=== PATIENT | male | born 1965 | race Caucasian/White ===

== ENCOUNTER 2021-04-07 14:26 | Outpatient (CLI) | payer OTHER, SELFPAY ==
--- NOTE | 2021-04-07 14:30 | ECG_ITS ---
Measurements Intervals [place] Rate: 99 P: 56 [place]: 139 QRS: 19 QRSD: 93 T: 3 QT: 335 QTc: 431 Interpretive Statements SINUS RHYTHM BORDERLINE ST-T WAVE ABNORMALITY- INFERIOR LEADS BORDERLINE ECG Electronically Signed On 04-07-2021 15:21:15 CDT by Jimmy Armando D.O.
== END 2021-04-07 14:27 | disposition home or self-care (01) ==
PROVIDERS: PCP Family Medicine; Visit Provider Nurse Practitioner Family
DX: E78.2 Mixed hyperlipidemia (principal); I10 Essential (primary) hypertension; Z72.0 Tobacco use; Z82.49 Family history of ischemic heart disease and other diseases of the circulatory system; R94.31 Abnormal electrocardiogram [ECG] [EKG]
CPT/HCPCS: 93005

== ENCOUNTER 2022-06-01 09:03 | Outpatient (CLI) | payer OTHER, SELFPAY ==
--- NOTE | ~2022-06-01 | XR_ITS ---
EXAMINATION: XR ribs BI 3V w CXR 2V INDICATION: Left chest pain TECHNIQUE: PA and lateral views of the chest and 3 views of the bilateral ribs were obtained. COMPARISON: None. FINDINGS: The lungs are free of acute opacities. No pleural effusion or pneumothorax. The cardiomedia stinal silhouette is normal. There is mild thoracic spondylosis. No displaced rib fracture is identif ied. IMPRESSION: 1. No acute cardiopulmonary abnormality or evidence of displaced rib fracture. Reviewed, dictated and finalized at location B.
== END 2022-06-01 09:04 | disposition home or self-care (01) ==
PROVIDERS: PCP Family Medicine; Visit Provider Nurse Practitioner Family
DX: R07.81 Pleurodynia (principal)
CPT/HCPCS: 71046; 71110

== ENCOUNTER 2022-06-12 10:36 | Outpatient (CLI) | payer OTHER, SELFPAY ==
--- NOTE | ~2022-06-12 | US_ITS ---
EXAMINATION: US soft tissue chest DATE: 06/12/2022 11:53 INDICATION: Couple painful chest nodules of 5 weeks duration TECHNIQUE: Multiple grayscale ultrasound images of the region of concern at the left chest wall inclu ding below the left breast and at the axilla were obtained. COMPARISON: None FINDINGS: Normal appearance to the subcutaneous fat and underlying ribs at the region of concern. No abnormal m asses or fluid collections identified. IMPRESSION: 1. Normal ultrasound appearance to the left chest wall at the 2 regions of concern. No abnormal ja s or fluid collections identified. Reviewed, dictated and finalized at location A. IMPRESSION: 1. Normal ultrasound appearance to the left chest wall at the 2 regions of conc brit. No abnormal masses or fluid collections identified.
== END 2022-06-12 10:37 | disposition home or self-care (01) ==
LOC: ANHIMG 10:38
PROVIDERS: PCP Family Medicine; Visit Provider Nurse Practitioner Family
DX: R22.2 Localized swelling, mass and lump, trunk (principal)
CPT/HCPCS: 76604

== ENCOUNTER 2022-07-23 10:49 | Outpatient (CLI) | payer OTHER, SELFPAY ==
--- NOTE | ~2022-07-23 | CT_ITS ---
EXAMINATION:CT diagnostic chest w con DATE: 07/23/2022 11:45 INDICATION: Palpable chest mass. TECHNIQUE: Computed tomography (CT) of the chest was performed with 75 mL Omnipaque 350 intravenous c ontrast. Automated exposure control and iterative reconstruction technique were employed. The dose-le ngth product (DLP) was 540.05 mGy-cm. COMPARISON: Ultrasound 06/12/2022 FINDINGS: There is mild emphysema. No pleural effusion. The heart size is normal. There are coronary artery calcifications. No pericardial effusion. There are no pathologically enlarged lymph nodes. The re is bilateral gynecomastia. There are 3 mm and 4 mm stones in right kidney. There is mild thoracic spondylosis. IMPRESSION: 1. No abnormal chest mass. Reviewed, dictated and finalized at location A. IMPRESSION: 1. No abnormal chest mass.
[2022-07-23 11:35] LABS: Estimated Glomerular Filt Rate > 60
== END 2022-07-23 10:50 | disposition home or self-care (01) ==
PROVIDERS: PCP Family Medicine; Visit Provider Nurse Practitioner Family
DX: R07.81 Pleurodynia (principal)
CPT/HCPCS: 71260; Q9967

== ENCOUNTER 2022-10-29 11:14 | Outpatient (CLI) | payer OTHER, SELFPAY ==
--- NOTE | ~2022-10-29 | XR_ITS ---
XR hip RT min 3V w AP pelvis DATE: 10/29/2022 11:49 INDICATION: Right leg sciatica. No known injury. TECHNIQUE: AP pelvis. AP, lateral and crosstable lateral views of right hip. COMPARISON: None FINDINGS: No pelvic fracture or bone destruction. The pubic symphysis and sacroiliac joints are intac t. There is bilateral hip osteoid arthritis, more prominent, severe, on the right. There is severe right hip joint space narrowing as well as prominent spurring. No fracture or dislocation, avascular necrosis or bone destruction of the right hip is evident. Bilateral femoral artery calcifications. Prostate calcifications. IMPRESSION: Bilateral hip osteoarthritis, more severe on the right Reviewed, dictated and finalized at location L. HATCHERY ASSISTANT
--- NOTE | ~2022-10-29 | XR_ITS ---
XR lumbar spine 2-3V DATE: 10/29/2022 11:49 INDICATION: Back pain. Right sciatica. TECHNIQUE: AP, lateral, coned lateral lumbosacral views COMPARISON: None FINDINGS: Normal alignment. No fracture or bone destruction or spondylolisthesis. The lumbar pedicles are intact. Lumbar and lumbosacral interspaces are well preserved. Sacroiliac joints are intact. Abd ominal aortic and iliac arterial calcifications. IMPRESSION: No significant abnormality Reviewed, dictated and finalized at location L. RAL OPERATOR IMPRESSION: No significant abnormality
== END 2022-10-29 11:15 | disposition home or self-care (01) ==
PROVIDERS: PCP Family Medicine; Visit Provider Nurse Practitioner Family
DX: M54.9 Dorsalgia, unspecified (principal); M16.0 Bilateral primary osteoarthritis of hip
CPT/HCPCS: 72100; 73502

== ENCOUNTER 2025-08-21 08:23 | Outpatient (CLI) | payer OTHER, SELFPAY ==
--- NOTE | ~2025-08-21 | CT_ITS ---
EXAMINATION:CT lung screening DATE: 08/21/2025 08:58 INDICATION: Screening TECHNIQUE: Computed tomography (CT) of the chest was performed without intravenous contrast. The dose-length product (DLP) was 177.32 mGy-cm. COMPARISON: July 23, 2022 FINDINGS: 3 mm left lung base nodule stable. No new nodules or suspicious lesions/masses. No acute intrathoracic process identified. Heart size normal. No significant pericardial effusion. Extensive coronary artery calcification and/or stenting. No bulky lymphadenopathy or masses. No acute process seen in the visualized upper abdomen. Stable left lobe liver cyst image 112 series 2. Bones appear intact with multilevel degenerative changes. IMPRESSION: 1. No suspicious nodule or mass. No acute intrathoracic process identified. LUNG RADS 2. 2. Recommend follow-up screening chest CT in 12 months. Reviewed, dictated and finalized at location A. ICE ATTENDANT [place] IMPRESSION: 1. No suspicious nodule or mass. No acute intrathoracic process identified. VIET G RADS 2. 2. Recommend follow-up screening chest CT in 12 months.
--- NOTE | ~2025-08-21 | MR_ITS ---
EXAM/PROCEDURE: MR lumbar spine wo con HISTORY: M54.50 - Low back pain, unspecified COMPARISON: None available. TECHNIQUE: Lumbar spine MRI FINDINGS: Degenerative changes present throughout the lumbar spine involving disc spaces and posterior elements. No acute or aggressive bony or soft tissue process seen. The conus tapers normally at the level of T12. Incompletely visualized, at the T11-T12 level on sagittal images is moderate to large right paracentral protrusion and/or posterior spondylosis resulting in stenosis in the right lateral recess and deformity of the spinal cord on the right side. Milder changes at T10-11. In the lumbar spine, level specific findings as follows: T12-L1: Mild degenerative change L1-2: Mild degenerative change L2-3: Moderate facet hyperostosis and thickening of ligamenta flava with mild posterior spondylosis. No discrete disc protrusion or spinal canal stenosis. Mild to moderate bilateral neural foraminal narrowing, left worse than right. L3-4: More advanced hyperostosis in the facet joints combined with mild to moderate posterior disc bulging resulting in developing stenosis in the lateral recesses right worse than left. Moderately severe bilateral neural foraminal narrowing also present, right slightly worse than left. No discrete disc protrusion or spinal canal stenosis. L4-5: More severe thickening of ligamentum flavum and facet hyperostosis combined with moderately severe posterior disc bulging and/or spondylosis resulting in moderate to severe spinal canal stenosis. No discrete disc protrusion. Moderate to severe bilateral neural foraminal narrowing left worse than right. L5-S1: No spinal canal stenosis or discrete disc protrusion. Mild to moderate bilateral neural foraminal narrowing. IMPRESSION: Multilevel degenerative changes most severe at L4-5 where there is moderate to severe spinal canal stenosis. See level specific details as above including comments comments regarding T11-T12; consider correlation with dedicated thoracic spine MRI as clinically appropriate. Reviewed, dictated and finalized at location A. LOPMENT WRITER IMPRESSION: Multilevel degenerative changes most severe at L4-5 where there is moderate to severe spinal canal stenosis. See level specific details as above i ncluding comments comments regarding T11-T12; consider correlation with [facility] ed thoracic spine MRI as clinically appropriate.
== END 2025-08-21 08:24 | disposition home or self-care (01) ==
LOC: MICIMG 08:24
PROVIDERS: PCP Family Medicine; Visit Provider Nurse Practitioner Family
DX: M54.50 Low back pain, unspecified (principal); G89.29 Other chronic pain; Z87.891 Personal history of nicotine dependence
CPT/HCPCS: 71271; 72148